=== PATIENT | female | born 1945 | race Caucasian/White ===

== ENCOUNTER 2025-06-28 11:30 | Outpatient (AMB) | payer MEDICARE, SELFPAY ==
[2025-06-28 11:34] VITALS: BMI 21.0
--- NOTE | 2025-06-28 11:34 | A.PHYSOV ---
Vital Signs 06/28/25 11:34 Height 5 ft 2 in Weight 115 lb BMI 21.0 Intake Visit Reasons: [facility] Ref-left arm pain Intake Note: Patient is a 79 year old female here for new patient office visit. Patient has been referred for left arm pain. 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 Carter is an 79 year old female seen in consultation today for left-sided shoulder pain. Patient reports symptoms for the past couple of months. She denies any specific trauma. Her symptoms are worse with abduction and rest. She has a pain level today of 6/10. She does note some radiation into the humerus. Patient's symptoms are worse with activity and improved with rest. She has been using Tylenol for pain. She denies any incontinence, saddle anesthesia urinary retention. I reviewed the referring provider's no prior to consultation. Procedure: Left subacromial injection 06/28/2025 [facility] Surgical History (Updated 06/23/25 @ 07:26 by Yaa Huerta MA) H/O: hysterectomy Social History (Updated 06/23/25 @ 07:27 by Yaa Huerta MA) Alcohol intake: current Alcohol intake frequency: does not drink Patient Tobacco Use Status: Never used Tobacco Review of Systems Narrative Left shoulder pain. No paresthesias, incontinence or saddle anesthesia. Physical Exam Exam Exam: Cervical Spine: She is mildly tender to left upper trapezius. Full range of motion of her cervical spine. Special Tests: Axial Compression test: Negative Spurlings test: Negative Lhermitte's sign is Negative Upper Extremities: She is tender to the lateral deltoid of the left shoulder. Full range of motion of the shoulder in all planes. She has a positive Neer test. Negative empty can test. Full range of motion of her elbow wrist and hand. Equal access director strength bilaterally. Neuro: Sensation: Intact to upper extremities bilateral to light touch Strength C5 (Elbow Flexion): 5/5 on the left and 5/5 on the right. C6 (Elbow Ext): 5/5 on the left and 5/5 on the right. C7 (Elbow Ext): 5/5 on the left and 5/5 on the right. C8 (Finger Flex): 5/5 on the left and 5/5 on the right. T1 (Finger Abd/Add): 5/5 on the left and 5/5 on the right. DTR: C5 (Biceps): Left 2 Right 2 C6 (Brachioradialis): Left 2 Right 2 C7 (Triceps): Left 2 Right 2 Herrera sign: Negative No pathologic clonus. No involuntary movement. Vital Signs: BMI result Body Mass Index 21.0 Office Procedures AMB Shoulder Injection AMB Shoulder Injection Procedure Details: Left Subacromial injection Procedure: The patient was educated about risks, complications and benefits including but not limited to increased serum glucose, infection, nerve damage, bleeding, tendon/ligament damage and pain. We agree with a subacromial injection is the next best step in the treatment plan. Verbal consent was obtained. Using aseptic technique, the skin was cleansed with Betadine. Ethyl chloride was used to desensitize the skin. Using a posterior approach, 40 mg of Kenalog and 3 mL 2% lidocaine were injected using a 25-gauge inch and a half needle into the subacromial space. The patient tolerated the procedure well without immediate complication. Postinjection instructions were given. Shoulder Injection - : Left All charges added?: Procedure code (CPT) selection complete Office Meds Kenalog 40 mg/mL suspension for injection Performing Provider: OTILIO Delgado Performing Location: [facility] Administered by: OTILIO Delgado on 06/29/25 09:00 Dose Route Admin Location Dispensed Lot Number Expiration Date [facility] Hand Ii Tube Bender 40 mg intrabursal 1 mL [id number] [employer] Total Dispensed Waste 1 mL 0 % lidocaine (PF) 20 mg/mL (2 %) injection solution Performing Provider: OTILIO Delgado Performing Location: [facility] Administered by: OTILIO Delgado on 06/29/25 09:00 Dose Route Admin Location Dispensed Lot Number Expiration Date [facility] Hand Ii Tube Bender 60 mg intrabursal 5 mL [id number] [facility] Total Dispensed Waste 5 mL 40 % Assessment & Plan Assessment & Plan (1) Impingement of left shoulder: Code(s): M25.812 - Other specified joint disorders, left shoulder Category: Medical Plan Ms. Carter is an 79-year-old female seen in consultation today for left shoulder impingement. She consented to subacromial injection. She was given post-injection instructions, recommend: Moist heat compresses for 15 minutes 5 times daily. Today we reviewed rotator cuff exercises that she will perform every other day she should avoid repetitive overhead activities. I recommend x-ray of the left shoulder today. Recommend follow-up in 1 month as needed. We discussed the benefits of proper nutrition and exercise to maintain a healthy body weight to improve longevity and function. We also discussed the benefits of proper lifting techniques, core strengthening and proper posture. Thank you for allowing me to participate in the care of your patient. Orders: Orders XR shoulder LT min 2V 06/28/25 M25.519 - Pain in unspecified shoulder AMB Shoulder Injection 06/28/25 M25.812 - Other specified joint disorders, left shoulder Coding Level of Care Code Tele New Pt Level 4 (64427) Diagnoses Impingement of left shoulder M25.812 CPT Codes AMB Shoulder Injection - Hip/Bursa Injection - : Left ([id number])
--- OUTSIDE RECORDS SUMMARY | 2025-06-28 15:13 | XMS_ITS | Patient Health Record ---
Author Organization [facility] Address [address] [place] [address] Care Team Providers Care Supervisor Riveting Name Role Phone Bhavesh MAHAN, Mark Anthony Primary Care Provider Maximilian Hameed Unavailable [phone] Allergies Allergen (clinical drug ingredient) Drug/Non Drug Allergy documented on EMR Reaction Allergy Type Onset Date Status Neosporin (uncoded) rash Allergy Active poly sporin (uncoded) rash Allergy Active sulfa rash Drug Allergy Active Penicillin nausea, vomiting Drug Allergy Active adhesive tape rash Drug Allergy Act benji latex Unknown Drug Allergy Active Reason For Referral No Information Medications Medication SIG (Take, Route, Frequency, Duration) Notes Start Date End Date Status Levoxyl 125 MCG Oral; Duration: 90 Active Escitalopram Oxalate 20 MG Oral; Duration: 90 Active Myrbetriq Active LORazepam 0.5 MG Oral; Duration: 90 PRN Active Social History Tobacco use other than smoking: Question Answer Notes Are you an other tobacco user? No Problems Problem Type SNOMED Code ICD Code Onset Dates Problem Status W/U Status Risk Notes Problem Acquired hallux valgus (05833304) Hallux valgus (acquired), left foot (M20.12) Active confirmed Problem Acquired hammer toe of left foot ([id number] 103) Other hammer toe(s) (acquired), left foot (M20.42) Active confirmed Plan Of Treatment Pending Test Test Name Order Date X ray : Foot, left 3V 08/12/2016 Insurance Providers Payer Name Payer Address Payer Phone Subscriber Number Group Number Insured Name Patient Relationship to Insured Coverage Start Date Coverage End Date Medicare National [employer] [address] [place] [address] [id number] Lorrie Carter Self - patient is the insured 0 [employer] [address] [place] [address] [phone] [id number] Lorrie Carter Self - patient is the insured Medical (General) History Medical History History ICD Code Broken bones Depression Thyroid disorder Measles Mumps Chicken pox Joint implants/screws Warts Surgical History Surgery Date(Month/Year) bartholin cyst removal 1992 osteotomy right distal radius with bone graft from hip 1992 transvaginal and paravaginal defect repair/transvaginal hysterectomy/etc 1994
== END 2025-06-28 12:23 | disposition home or self-care (01) ==
LOC: HO.HPHYS 11:30
PROVIDERS: PCP Internal Medicine; Visit Provider Physician Assistant
DX: M25.812 Other specified joint disorders, left shoulder (principal)
CPT/HCPCS: 20610; 99203

== ENCOUNTER → 2025-06-28 11:30 | Outpatient (BNVA) | payer MEDICARE, SELFPAY | PROVIDERS: PCP Internal Medicine; Visit Provider Physician Assistant | DX: M25.812 Other specified joint disorders, left shoulder (principal) | CPT/HCPCS: 20610; 99202; J2003; J3301 ==